=== PATIENT | male | born 1970 | race Caucasian/White ===

== ENCOUNTER 2017-02-19 12:35 | Observation (INO) ==
[2017-02-19] MEDS ORDERED: METOPROLOL TARTRATE 5 MG/5 ML VIAL IV STA ×2 (13:06→14:21)
[2017-02-19] MEDS ORDERED: MORPHINE 2 MG/1 ML SYRINGE IV PRN (13:06)
[2017-02-19] MEDS ORDERED: ENOXAPARIN 100 MG/ML SYRINGE SUBCUT STA (13:06)
[2017-02-19] MEDS ORDERED: ASPIRIN 325 MG TABLET PO STA (13:06)
[2017-02-19] MEDS ORDERED: ONDANSETRON 4 MG/2 ML VIAL IV PRN ×2 (13:06→15:48)
[2017-02-19 13:14] LABS: Basophils # 0.1 10*3/uL (0.0-0.2); Basophils % 0.9 % (0.0-0.8); Eosinophils # 0.4 10*3/uL (0.0-0.87); Eosinophils % 4.9 % (0.00-10.9); Hematocrit 43.8 VOL% (42.0-52.0); Hemoglobin 15.3 GM/DL (14.0-18.0); Immature Granulocytes % 0.2 %; Immature Granulocytes Absolute 0.02 #; Lymphocytes # 2.3 10*3/uL (1.4-4.0); Lymphocytes % 28.7 % (21.2-54.2); Mean Corpuscular HGB Conc 34.9 GM/DL (32-36); Mean Corpuscular Hemoglobin 30 PG (27-34); Mean Corpuscular Volume 85.9 FL (87-102); Mean Platelet Volume 10.6 FL (9.6-12.0); Monocytes # 0.7 10*3/uL (0.11-0.8); Monocytes % 8.6 % (1.7-12.7); Neutrophils # 4.6 10*3/uL (1.4-7.4); Neutrophils % 56.7 % (38.7-73.9); Platelet Count 282 T/CUMM (130-400); Red Cell Distribution Width 13.2 % (9.3-17.3); White Blood Count 8.1 T/CUMM (4-12)
[2017-02-19] MEDS ORDERED: ENOXAPARIN 120 MG/0.8 ML SYRINGE SUBCUT ONE (13:14)
[2017-02-19] MEDS ORDERED: ONDANSETRON 4 MG/2 ML VIAL ONE (13:15)
[2017-02-19] MEDS ORDERED: MORPHINE 2 MG/1 ML SYRINGE ONE (13:15)
[2017-02-19] MEDS ORDERED: ASPIRIN 325 MG TABLET ONE (13:15)
[2017-02-19] MEDS ORDERED: METOPROLOL TARTRATE 5 MG/5 ML VIAL IV ONE ×2 (13:15→14:18)
[2017-02-19 13:22] LABS: PT Patient Result 10.2 SECS
--- NOTE | 2017-02-19 13:27 | EKG Report ---
Stationary ECG Study [facility] ER Test Date: 02/19/2017 1:24:58 PM Pat Name: GAVINO CATHERINE Department: Room: Gender: M [employer]: : 1970 Requested by: Pipe Mijares Order Number: [id number] Marla MD: MARGIE GERMAN Intervals [place] Rate: 68 P: 28 MN: 162 QRS: 4 QRSD: 96 T: 45 QT: 410 QTc: 426 Interpretive Statements SINUS RHYTHM Electronically Signed On 02-20-17 17:05:35 CDT by MARGIE GERMAN [email or web address]
--- NOTE | 2017-02-19 13:27 | Emergency Department Note ---
Dwayne Potter Gwan, am scribing for, and in the presence of, Pipe Pastor MD 13:25 . Darby Potter James D, MD, personally performed the services described in this documentation, ascribed by Logan Rice in my presence, and it is both accurate and complete 327 . Arrival - Arrival Chief Complaint: Blood Pressure Stated Complaint: blood pressure too high ED Nursing Triage Note: c/o high bp. +headache. onset yesterday. pt is out of one his bp meds Mode of Arrival: Ambulatory Limitations: No Limitations Source: Patient, Old Records Reviewed, RN Notes Reviewed - History of Present Illness HPI Narrative: Patient is a 46 y/o white male, with a hx of HTN, who presents to the ED with a c/o high BP and KIRBY with an onset 3 days ago. Patient stated that he has been non compliant with his BP medication due to him running out of it. He describes his chest discomfort as tightness and that it is located in the center of his chest. His associated sxs have been diaphoresis, nausea and fatigue on exertion. Patient denies SOB or having a SHx of smoking cigarettes. He is followed by [facility] Tamiko Zamorano. He continued to note that he has a FMHx of heart disease. No other problems/complaints reported in ED. Onset (ago): day(s) Consistency: constant Severity: moderate Allergies/Adverse Reactions: Allergies Allergy/AdvReac Type Severity Reaction Status Date / Time Metaxalone [From Skelaxin] Allergy Unknown/Unable Verified 02/19/17 12:43 to obtain Home Medications: Home Medications Medication Instructions Recorded Confirmed Type Atenolol 50 mg PO DAILY 02/19/17 02/19/17 History Benazepril/Hydrochlorothiazide 1 each PO DAILY 02/19/17 02/19/17 History [Benazepril-Hctz 20-25 mg Tab] Review of System - Review of System 12 point system: reviewed and no additional remarkable complaints except as stated - Review of System Constitutional: Present: diaphoresis. Absent: chills, fever Eyes: Absent: discharge Head/Ears/Nose/Throat: Absent: earache Respiratory: Absent: cough Cardiovascular: Present: as per HPI, chest pain (tightness) Gastrointestinal: Present: as per HPI, nausea. Absent: abdominal pain, vomiting Genitourinary male: Absent: urgency, dysuria Musculoskeletal: Absent: arm pain, back pain, leg pain, neck pain Skin: Absent: rash, lesions Medical,Surgical,& Family Hx - Medical History Cardio: History of: Hypertension Musculoskeletal: History of: Musculoskeletal Problems (back surgery and plate in neck) - Social History Smoking Status: Smoker, status unknown Frequency of Alcohol Use: None Type of Drug Use: None Exam Physical Examination: GENERAL: This is a well-nourished, well-developed white male in no apparent distress. VITAL SIGNS: HEENT: Head is normocephalic and atraumatic. Pupils are equally round and reactive to light. Extraocular movement are intact. Oropharynx is benign with moist mucous membranes. NECK: Neck is soft and supple without tenderness. There are no masses. There is no lymphadenopathy. LUNGS: Lungs are clear to auscultation bilaterally. Chest rises symmetrically. There is no chest wall tenderness. CV: Heart is regular rate and rhythm without murmurs, rubs, or gallops. ABDOMEN: Abdomen is soft, non-tender to palpation. There are no abnormal masses palpated. There is no organomegaly. Bowel sounds are present and active. SKIN: Skin is warm and dry. No rash. EXTREMITIES: Patient has full range of motion without tenderness. There is no pedal edema. NEUROLOGIC: Awake, alert, and oriented x4. Cranial nerves II through XII are grossly intact. There are no motorsensory deficits. PSYCHIATRIC: Normal affect. Normal mood. Vital Signs: Vital Signs Temperature 99.3 F 02/19/17 12:49 Pulse Rate 61 02/19/17 14:30 Respiratory Rate 16 02/19/17 14:30 Blood Pressure 170/98 02/19/17 14:30 O2 Sat by Pulse Oximetry 98 02/19/17 14:30 Course - Consultations Consultation #1: Discussed with hospitalist. Patient will be admitted to their service. Time: 15:02 Results - Labs CBC & BMP: 02/19/17 13:04 02/19/17 13:04 Lab Results: I have reviewed the patients labs Labs: Laboratory Tests 02/19/17 13:04 WBC 8.1 RBC 5.10 Hgb 15.3 Hct 43.8 MCV 85.9 L Plt Count 282 Baso % (Auto) 0.9 H Laboratory Tests 02/19/17 02/19/17 13:04 13:04 INR 1.0 PT Patient/Control Mix 10.2 Circ Anticoag PTT 25.8 Laboratory Tests 02/19/17 14:14 Urine pH 5.0 Ur Specific [place] 1.002 Urine Blood Small Urine Urobilinogen < 2.0 H Laboratory Tests 02/19/17 13:04 Troponin I < 0.015 - EKG EKG results: interpreted by ERMD - Impressions EKG: Normal sinus rhythm with a rate of 68, normal ST-T waves, normal axis. - Diagnostic Findings Procedure: Chest x-ray: image reviewed by me, report reviewed by me (No acute cardiopulmonary process demonstrated. ) Disposition Clinical Impression: Chest pain, Essential hypertension, Hyperlipidemia, Family history of coronary artery disease in mother Case discussed with: patient Disposition: Still a Patient Condition: Stable Time of Disposition: 14:46
[2017-02-19 13:47] LABS: Albumin 4.6 G/DL (3.4-5.0); Bilirubin,Total 0.7 MG/DL (0.2-1.0); Calcium 9.6 MG/DL (8.5-10.1); Total Protein 8.1 G/DL (6.4-8.3)
--- NOTE | 2017-02-19 14:00 | XRay Report ---
XR chest 2V Indication: Chest pain Comparison: None Technique: Frontal and lateral views of the chest. Findings: The cardiomediastinal silhouette is stable in configuration. No focal consolidation, pleural effusion, or pneumothorax. Visualized osseous and surrounding soft tissue structures demonstrate no acute abnormality. Cervical fusion hardware partially visualized. IMPRESSION: No acute cardiopulmonary process demonstrated. PROCEDURE INTERPRETED AT [facility] DEPARTMENT OF RADIOLOGY Final Report Signed by: Dr Jan Hudson
[2017-02-19 14:21] LABS: Apearance,Urine CLEAR (Clear); Bilirubin,Urine Negative (Negative); Blood, Urine Small mg/dL (Negative); Glucose,Urine (UA) Negative (Negative); Ketones,Urine Negative (Negative); Nitrite,Urine Negative (Negative); Protein,Urine Negative; Urine Color Straw (Yellow); Urine Specific Gravity 1.002 (1.001-1.035); Urine Urobilinogen < 2.0 EU/DL (0.2-1.0)
[2017-02-19] MEDS ORDERED: hydrALAZINE 20 MG/1 ML VIAL IV STA (14:45)
[2017-02-19] MEDS ORDERED: hydrALAZINE 20 MG/1 ML VIAL ONE (14:47)
[2017-02-19 14:59] LABS: Barbiturates Screen,Urine Negative (Negative); Benzodiazepines Screen,Urine Negative (Negative); Cannabinoid Screen,Urine Negative (Negative); Opiate Screen,Urine Positive (Negative); Phencyclidine Screen,Urine Negative (Negative)
[2017-02-19] MEDS ORDERED: ACETAMINOPHEN 325 MG TABLET PO PRN (15:48)
--- NOTE | 2017-02-19 15:56 | Hospitalist History & Physical ---
Assessment and Plan (1) Obstructive sleep apnea Status: Acute Current Visit: Yes (2) Chest pain Status: Acute Current Visit: Yes (3) Essential hypertension Status: Acute Current Visit: Yes (4) Family history of coronary artery disease in mother Status: Acute Assessment and plan: Our plan for this patient will be admission to telemetry. Will consult [facility] cardiology for their evaluation. Also I will get a set patient up with a consult with sleep medicine. We will draw serial cardiac enzymes. EKG and chest x-ray looked good. There is no sign on his chest x-ray of a cardiomyopathy. Current Visit: Yes History of Present Illness Chief complaint: Chest discomfort and not feeling well History of present illness: Mr. Bello is a 46 year old male with past medical history significant for hypertension and possibly enlarged heart presents with not feeling well for the past couple days. Patient knew his blood pressure was elevated. He checked it at home is 207/127. He reports that he ran out of his atenolol. He has been having some chest tightness off and on. He said that has been going on for little while. He has a tired sensation that he started developing yesterday morning where his left arm felt weird. He has been having some diaphoretic symptoms and some shortness of breath. He thought possibly it could be his heart. His mom with a massive heart attack at age 50 and his brother at age 42. Upon further questioning patient is having some snoring at night. There are apnea episodes according to him. I was consulted to admit him to the ER. Home Medications Medication Instructions Recorded Confirmed Type Atenolol 50 mg PO DAILY 02/19/17 02/19/17 History Benazepril/Hydrochlorothiazide 1 each PO DAILY 02/19/17 02/19/17 History [Benazepril-Hctz 20-25 mg Tab] Allergies Allergy/AdvReac Type Severity Reaction Status Date / Time Metaxalone [From Skelaxin] Allergy Unknown/Unable Verified 02/19/17 12:43 to obtain Medical,Surgical,& Family Hx - Medical History Cardio: History of: Hypertension Musculoskeletal: History of: Musculoskeletal Problems (back surgery and plate in neck) - Surgical History Orthopedic Surgeries: Surgical HX of;: Orthopedic Surgery - Family History Family History: Reports;: Family Heart Disease - Social History Smoking Status: Smoker, status unknown Frequency of Alcohol Use: None Type of Drug Use: None 12 point system: reviewed and no additional remarkable complaints except as stated Exam - Constitutional Vitals: Period Temp Pulse Resp BP Sys/Hill Pulse Ox Last 24 Hr 99.3 F-99.3 F 60-80 16-23 170-190/83-114 95-98 General appearance: over weight - Head Head exam: Present: normal inspection - Eye Eye exam: Present: EOMI Pupils: Present: MUMTAZ - ENT ENT exam: Present: normal exam - Neck Neck exam: Present: normal inspection - Respiratory Respiratory exam: Present: clear to auscultation bilaterally - Cardiovascular Cardiovascular exam: Present: regular rate and rhythm - GI/Abdominal GI/Abdominal exam: Present: normal bowel sounds - Extremities Exam Extremities exam: Present: normal inspection - Back Exam Back exam: Present: normal inspection - Neurological Exam Neurological exam: Present: alert, oriented X3 - Psychiatric Psychiatric exam: Present: normal affect, normal mood - Skin Skin exam: Present: normal color Results - Labs CBC & BMP: 02/19/17 13:04 02/19/17 13:04
[2017-02-19] MEDS ORDERED: ENOXAPARIN 40 MG/0.4 ML SYRINGE SUBCUT SCH (16:00)
[2017-02-19 16:16] LABS: Risk Ratio 7.09; VLDL CHOLESTEROL 56.8 MG/DL
[2017-02-20] MEDS: ATENOLOL 50 MG TABLET PO SCH (08:44)
[2017-02-20] MEDS: ASPIRIN EC 325 MG TABLET PO SCH (08:45)
[2017-02-20] MEDS ORDERED: BENAZEPRIL 10 MG TABLET PO SCH (09:00)
[2017-02-20] MEDS ORDERED: hydroCHLOROthiazide 25 MG TABLET PO SCH (09:00)
--- NOTE | 2017-02-20 10:00 | Cardiology Consult Note ---
Assessment and Plan - Time spent with patient Time spent with patient: Greater than 30 minutes (due to assessment, plan, and documentation) Time spent discussing smoking cessation with patient: 3 to 10 minutes (1) Angina pectoris Status: Acute Assessment and plan: See plan of care listed below. Current Visit: Yes (2) Essential hypertension Status: Chronic Assessment and plan: See plan of care listed below. Current Visit: Yes (3) Family history of premature CAD Status: Chronic Assessment and plan: See plan of care listed below. Current Visit: Yes (4) Obstructive sleep apnea Status: Acute Assessment and plan: See plan of care listed below. Current Visit: Yes (5) Hyperlipidemia Status: Acute Assessment and plan: See plan of care listed below. Current Visit: Yes (6) History of colon polyps Status: Chronic Assessment and plan: See plan of care listed below. Current Visit: Yes (7) Tobacco abuse Status: Chronic Assessment and plan: See plan of care listed below. Current Visit: Yes History of Present Illness - Data of Consult Patient: new to practice Consult date: 02/19/17 Requesting Physician: Pancho Cook Primary care physician: Tamiko Zamorano - Consult Narrative Reason for consult: CP, SOB History of present illness: WHOLESALE MANAGER: NONE, NEW TO DR. MCGARRY PCP: WINNIE RIDDLE Mr. Bello is a 46 year old male with a history of hypertension and gout. He has a strong family history of coronary artery disease with a mom who from an PR at age 50 and a brother who from an PR at age 42. Other risk factors include: Smokeless tobacco use, overweight, hypertension. He tells me he underwent stress testing approximately 10 years ago and was hospitalized at [facility] a couple years ago with hypertension and was told at that time that he had an enlarged heart and was placed on atenolol. Mr. Bello presented to the emergency room yesterday afternoon with elevated blood pressure and chest tightness. He tells us that he ran out of 1 of his blood pressure medications this past Saturday his blood pressure at home was 207/ 127. Is resuming his medications and adding additional therapy, this is now much improved. Upon interviewing the patient, he tells me that he has had chest pain off and on for the past year or more. He tells me this is gradually been getting more frequent and more intense. He describes his pain as being a tightness and is usually only when he exerts himself. He has associated shortness of breath, diaphoresis, and nausea. He tells me his pain is worse with exertion and improves with rest. He also complains of dyspnea on exertion and tells me he could barely walk down the [place] without becoming short of breath. He tells me on Saturday he had the worst pain he has ever had and also had some associated left arm discomfort. 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 He also complains of occasional palpitations. Further review of systems includes a history of snoring. Sleep medicine has been consulted to see him for suspected sleep apnea. He also reports a history of cancerous polyps which were removed [address] Herbert at [place]. He has not followed up with this since then and now reports he has occasional blood in his stool and frequent coffee ground appearing stools. In addition to this, he states he has had a decreased appetite and has been vomiting frequently here recently. He and his report they thought this vomiting may have been due to his medications but they have adjusted his medication schedule and the vomiting has not changed. ASSESSMENT/PLAN: 1. ANGINA - Patient reports symptoms fairly typical of angina. Currently has 3 sets of negative troponins and unremarkable EKG. Ideally, he would need a cath to further define his coronary anatomy, but with the possible need for DAPT and anticoagulation, we will ask GI to see him and obtain their input prior to proceeding. If he needs further evaluation and treatment of his GI issues, we may be able to pursue LHC on an outpatient basis. He is currently chest pain free; however, if he has recurrent anginal symptoms, we may have no choice but to proceed with left heart catheterization. His H&H is currently stable. 2. HYPERTENSION - Currently well controlled on current therapy. Will continue to monitor and adjust accordingly. 3. FAMILY HISTORY OF PREMATURE CAD - He has a strong family history of coronary artery disease with a mom who from an PR at age 50 and a brother who from an PR at age 42. 4. SUSPECTED SLEEP DISORDER - Sleep medicine has been consulted. 5. HYPERLIPIDEMIA - Will start lipid-lowering agent. 6. HISTORY OF CANCEROUS COLON POLYPS - Will consult GI due to history of cancerous colon polyps and recent melena/hematochezia. Will obtain occult stool and start on PPI. 7. TOBACCO ABUSE - Spent greater than 5 minutes discussing the importance of cessation of tobacco use. Dr. Mcgarry to follow with further plan and addendum. CC: Wendy Carballo MD - Home Medications and Allergies Home Medications: Home Medications Medication Instructions Recorded Confirmed Type Atenolol 50 mg PO DAILY 02/19/17 02/19/17 History Benazepril/Hydrochlorothiazide 1 each PO DAILY 02/19/17 02/19/17 History [Benazepril-Hctz 20-25 mg Tab] Allergies/Adverse Reactions: Allergies Allergy/AdvReac Type Severity Reaction Status Date / Time Metaxalone [From Skelaxin] Allergy Unknown/Unable Verified 02/19/17 12:43 to obtain Review of systems: - Constitutional: Present: fatigue, As per HPI. Absent: anorexia, chills, daytime sleepiness, excessive sweating, fever(s), frequent falls, headache(s), increased appetite, lethargy, malaise, night sweats, stops breathing during sleep, weakness, weight gain, weight loss. - EENT Eyes: Present: As per HPI. Absent: blurry vision, diplopia, loss of vision Ears: Present: As per HPI. Absent: decreased hearing, ear discharge, ear pain Nose, mouth and throat: Present: As per HPI. Absent: dysphagia, epistaxis, headache(s), hoarseness, lip swelling, nasal congestion, neck mass, neck pain, sinus pressure, sore throat, throat swelling, tongue swelling, vertigo - Cardiovascular: Present: chest pain with activity, dyspnea on exertion, edema , palpitations, as per HPI. Absent: chest pain at rest, dyspnea, claudication, diaphoresis, radiating jaw, neck or arm pain, lightheadedness, orthopnea, PND - Respiratory: Present: as per HPI. Absent: dyspnea, dyspnea on exertion, cough , hemoptysis, wheezing, snoring, pain on inspiration - Gastrointestinal: Present: hematochezia, melena, nausea, vomiting,As per HPI. Absent: abdominal pain, bloating, change in bowel habits, constipation, diarrhea , heartburn, hematemesis, loose stools - Genitourinary: Present: As per HPI. Absent: difficulty urinating, dysuria, flank pain, hematuria, nocturia, urinary frequency, urinary incontinence - Musculoskeletal: Present: As per HPI. Absent: arthralgias, back pain, joint swelling, limited range of motion, muscle cramps, muscle weakness, myalgias - Neurological: Present: As per HPI. Absent: abnormal gait, abnormal speech, behavioral changes, confusion, convulsions, disequilibrium, dizziness, focal weakness, frequent falls, headache(s), memory loss, numbness, paresthesias, radicular pain, syncope, tremor(s) - Psychiatric: Present: As per HPI. Absent: anxiety, confusion, depression, panic attacks - Endocrine: Present: fatigue, As per HPI. Absent: cold intolerance, heat intolerance, polydipsia, polyphagia - Hematologic/Lymphatic: Present: As per HPI. Absent: easy bleeding, easy bruising, lymphadenopathy Medical,Surgical,& Family Hx - Medical History Cardio: History of: Hypertension Rheumatology: History of;: Gout Musculoskeletal: History of: Musculoskeletal Problems (back surgery and plate in neck) - Surgical History Abdominal Surgeries: Surgical HX of: Cholecystectomy, Colonoscopy (polyps removed), EGD Orthopedic Surgeries: Surgical HX of;: Orthopedic Surgery - Family History Family History: Reports;: Family Diabetes, Family Heart Disease, Family Hypertension, Family Stroke Denies;: Family Cancer - Social History Smoking Status: Current every day smoker (uses smokeless tobacco) Time spent discussing smoking cessation with patient: 3 to 10 minutes Frequency of Alcohol Use: None Type of Drug Use: None Marital Status: Lives With:: Spouse Functional capacity: independent ambulation Physical Examination Vital Signs Temp Pulse Resp BP Pulse Ox 99.3 F 80 18 188/114 97 02/19/17 12:40 02/19/17 12:40 02/19/17 12:40 02/19/17 12:40 02/19/17 12:40 Other: General appearance: Pleasant and cooperative. Overweight, no acute distress. - Head Head exam: Present: normal inspection, normocephalic, atraumatic. Absent: hematoma, laceration - Eye Eye exam: Present: EOMI. Absent: conjunctival injection, nystagmus, periorbital swelling, scleral icterus, laceration to eyelids Pupils: Present: PERRL. Absent: constricted, dilated, fixed, irregular, unequal - ENT ENT exam: Present: normal exam, normal external ear exam - Neck Neck exam: Present: normal inspection. Absent: lymphadenopathy, meningismus, tenderness, thyromegaly - Respiratory Respiratory exam: Present: clear to auscultation bilaterally. Absent: accessory muscle use, chest wall tenderness - Cardiovascular Cardiovascular exam: Present: regular rate and rhythm. Absent: carotid bruit, gallop, JVD, rubs, murmur - GI/Abdominal GI/Abdominal exam: Present: normal bowel sounds, soft. Absent: distended, firm , guarding, hernia, mass, tenderness, rebound. - Extremities Exam Extremities exam: Present: normal inspection, normal capillary refill. Upper extremity pulses 2+. Lower extremity pulses 2+. Absent: calf tenderness, edema -Musculoskeletal Exam Musculoskeletal: Present: No Fluid Collection, No Pain, Normal Range of Motion - Back Exam Back exam: Present: normal inspection. Absent: muscle spasm, vertebral tenderness - Neurological Exam Neurological exam: Present: alert, oriented X3, grossly intact without resting or essential tremor - Psychiatric Psychiatric exam: Present: normal affect, normal mood - Skin Skin exam: Present: normal color, warm, dry, intact. Absent: cyanosis, diaphoretic, rash, urticaria Result/EKG - Labs CBC & BMP: 02/19/17 13:04 02/19/17 13:04 Lab Results: I have reviewed the past 24 hour labs Labs: Laboratory Results - last 24 hr 02/19/17 02/19/17 02/19/17 13:04 13:04 13:04 WBC 8.1 RBC 5.10 Hgb 15.3 Hct 43.8 MCV 85.9 L MCH 30 MCHC 34.9 RDW 13.2 Plt Count 282 MPV 10.6 Neut % (Auto) 56.7 Lymph % (Auto) 28.7 [place] % (Auto) 8.6 Eos % (Auto) 4.9 Baso % (Auto) 0.9 H Neut # (Auto) 4.6 Lymph # (Auto) 2.3 [place] # (Auto) 0.7 Eos # (Auto) 0.4 Baso # (Auto) 0.1 Immature Gran % 0.2 Nucleated RBC % 0.0 Immature Gran # 0.02 Nucleated RBCs # 0.00 INR 1.0 PT Patient/Control Mix 10.2 Circ Anticoag PTT Sodium 136 Potassium 4.0 Chloride 98 Carbon Dioxide 28 Anion Gap 14.0 BUN 11 Creatinine 0.90 GFR Calculation 139 BUN/Creatinine Ratio 12.00 Glucose 89 Calculated Osmolality 269.0 L Calcium 9.6 Total Bilirubin 0.70 AST 20 ALT 27 Alkaline Phosphatase 68 Troponin I Total Protein 8.1 Albumin 4.6 Globulin 3.5 Albumin/Globulin Ratio 1.3 Triglycerides Cholesterol LDL Cholesterol VLDL Cholesterol HDL Cholesterol Heart Disease Risk Ratio Urine Color Urine Appearance Urine pH Ur Specific [place] Urine Protein Urine Glucose (UA) Urine Ketones Urine Blood Urine Nitrate Urine Bilirubin Urine Urobilinogen Urine Leukocytes Ur Culture Indicated? Urine Opiates Screen Ur Barbiturates Screen Ur Phencyclidine Scrn U Amphetamine/Methamph U Benzodiazepines Scrn U Cocaine Metab Screen U Cannabinoids Screen 02/19/17 02/19/17 02/19/17 13:04 13:04 13:04 WBC RBC Hgb Hct MCV MCH MCHC RDW Plt Count MPV Neut % (Auto) Lymph % (Auto) [place] % (Auto) Eos % (Auto) Baso % (Auto) Neut # (Auto) Lymph # (Auto) [place] # (Auto) Eos # (Auto) Baso # (Auto) Immature Gran % Nucleated RBC % Immature Gran # Nucleated RBCs # INR PT Patient/Control Mix Circ Anticoag PTT 25.8 Sodium Potassium Chloride Carbon Dioxide Anion Gap BUN Creatinine GFR Calculation BUN/Creatinine Ratio Glucose Calculated Osmolality Calcium Total Bilirubin AST ALT Alkaline Phosphatase Troponin I < 0.015 Total Protein Albumin Globulin Albumin/Globulin Ratio Triglycerides 284 H Cholesterol 234 H LDL Cholesterol 159.0 VLDL Cholesterol 56.8 HDL Cholesterol 33 L Heart Disease Risk Ratio 7.09 Urine Color Urine Appearance Urine pH Ur Specific [place] Urine Protein Urine Glucose (UA) Urine Ketones Urine Blood Urine Nitrate Urine Bilirubin Urine Urobilinogen Urine Leukocytes Ur Culture Indicated? Urine Opiates Screen Ur Barbiturates Screen Ur Phencyclidine Scrn U Amphetamine/Methamph U Benzodiazepines Scrn U Cocaine Metab Screen U Cannabinoids Screen 02/19/17 02/19/17 02/19/17 14:14 14:14 18:28 WBC RBC Hgb Hct MCV MCH MCHC RDW Plt Count MPV Neut % (Auto) Lymph % (Auto) [place] % (Auto) Eos % (Auto) Baso % (Auto) Neut # (Auto) Lymph # (Auto) [place] # (Auto) Eos # (Auto) Baso # (Auto) Immature Gran % Nucleated RBC % Immature Gran # Nucleated RBCs # INR PT Patient/Control Mix Circ Anticoag PTT Sodium Potassium Chloride Carbon Dioxide Anion Gap BUN Creatinine GFR Calculation BUN/Creatinine Ratio Glucose Calculated Osmolality Calcium Total Bilirubin AST ALT Alkaline Phosphatase Troponin I < 0.015 Total Protein Albumin Globulin Albumin/Globulin Ratio Triglycerides Cholesterol LDL Cholesterol VLDL Cholesterol HDL Cholesterol Heart Disease Risk Ratio Urine Color Straw Urine Appearance Clear Urine pH 5.0 Ur Specific [place] 1.002 Urine Protein Negative Urine Glucose (UA) Negative Urine Ketones Negative Urine Blood Small Urine Nitrate Negative Urine Bilirubin Negative Urine Urobilinogen < 2.0 H Urine Leukocytes Negative Ur Culture Indicated? Not indicated Urine Opiates Screen Positive H Ur Barbiturates Screen Negative Ur Phencyclidine Scrn Negative U Amphetamine/Methamph Negative U Benzodiazepines Scrn Negative U Cocaine Metab Screen Negative U Cannabinoids Screen Negative 02/19/17 21:39 WBC RBC Hgb Hct MCV MCH MCHC RDW Plt Count MPV Neut % (Auto) Lymph % (Auto) [place] % (Auto) Eos % (Auto) Baso % (Auto) Neut # (Auto) Lymph # (Auto) [place] # (Auto) Eos # (Auto) Baso # (Auto) Immature Gran % Nucleated RBC % Immature Gran # Nucleated RBCs # INR PT Patient/Control Mix Circ Anticoag PTT Sodium Potassium Chloride Carbon Dioxide Anion Gap BUN Creatinine GFR Calculation BUN/Creatinine Ratio Glucose Calculated Osmolality Calcium Total Bilirubin AST ALT Alkaline Phosphatase Troponin I < 0.015 Total Protein Albumin Globulin Albumin/Globulin Ratio Triglycerides Cholesterol LDL Cholesterol VLDL Cholesterol HDL Cholesterol Heart Disease Risk Ratio Urine Color Urine Appearance Urine pH Ur Specific [place] Urine Protein Urine Glucose (UA) Urine Ketones Urine Blood Urine Nitrate Urine Bilirubin Urine Urobilinogen Urine Leukocytes Ur Culture Indicated? Urine Opiates Screen Ur Barbiturates Screen Ur Phencyclidine Scrn U Amphetamine/Methamph U Benzodiazepines Scrn U Cocaine Metab Screen U Cannabinoids Screen - EKG EKG results: interpreted by me, sinus rhythm
[2017-02-20] MEDS ORDERED: hydrALAZINE 25 MG TABLET PO PRN (11:03)
[2017-02-20] MEDS ORDERED: NITROGLYCERIN SL 0.4 MG TABLET SL ONE (14:05)
--- NOTE | 2017-02-20 14:59 | Gastrointestinal Consult Note ---
<Suyapa Garcia - Last Filed: 02/20/17 14:55> Assessment and Plan (1) Nausea and vomiting Status: Acute Assessment and plan: 02/20-several year history of nausea and vomiting every morning, not associated with meal ingestion or other known factors. Prior workup at [place] for this with no findings. Occasional reports of melena. Obtain stool for occult blood. Obtain endoscopy records from [facility]. Cardiac workup is ongoing at this time. Plan an addendum to follow by Dr. Mistry. Current Visit: Yes History of Present Illness Chief complaint: Chronic nausea vomiting History of present illness: Mr. Bello is a 46 year old male who was admitted to the hospital and yesterday with complaints of elevated blood pressure and headache 3 days. Patient has a history of hypertension, and states he has not felt well the last several days. He was aware that his blood pressure was elevated and he ran out of his medication and at that time began having some chest discomfort. He has a strong family history of cardiac disease in his family with his father and brother passing away from this at an early age. Since admission, patient is brought forth that he also has a long-term history of chronic nausea and vomiting every morning. Patient states that for several years he has an episode somewhere between the time he gets out of bed and late morning where he will have nausea vomiting. He states that it does not matter if he is eaten or not, he will usually do this at least once a day. He states usually it is just bile stained emesis or food that he has recently eaten. He denies any abdominal pain associated with this. He denies any him much emesis or coffee- ground emesis. He does state that at times off and on as well he has had dark stools and denies any iron or Pepto-Bismol use. He denies a history of peptic ulcer disease. Denies a history of dysphagia other than at times with drinking water. He denies having chronic reflux symptoms. He denies any recent weight loss. He states that he has had upper endoscopy in the past however is been several years ago at [facility] for the same symptoms with no findings noted. He does recall having hiatal hernia. He denies any regular NSAID use. Patient states that he had a cholecystectomy approximately 3-4 years ago and reports a history of gallstones. He has not had a recent colonoscopy in the past several years however he does report a history of colon polyps which he states were told to be precancerous in the past. He denies a history of diabetes and states he has never had a gastric emptying scan in the past. His cardiac workup is ongoing at this time. Home Medications Medication Instructions Recorded Confirmed Type Atenolol 50 mg PO DAILY 02/19/17 02/19/17 History Benazepril/Hydrochlorothiazide 1 each PO DAILY 02/19/17 02/19/17 History [Benazepril-Hctz 20-25 mg Tab] Allergies Allergy/AdvReac Type Severity Reaction Status Date / Time Metaxalone [From Skelaxin] Allergy Unknown/Unable Verified 02/19/17 12:43 to obtain Medical,Surgical,& Family Hx - Medical History Cardio: History of: Hypertension Rheumatology: History of;: Gout Musculoskeletal: History of: Musculoskeletal Problems (back surgery and plate in neck) - Surgical History Abdominal Surgeries: Surgical HX of: Cholecystectomy, Colonoscopy (polyps removed), EGD Orthopedic Surgeries: Surgical HX of;: Orthopedic Surgery - Family History Family History: Reports;: Family Diabetes, Family Heart Disease, Family Hypertension, Family Stroke Denies;: Family Cancer - Social History Smoking Status: Current every day smoker (uses smokeless tobacco) Frequency of Alcohol Use: None Type of Drug Use: None 12 point system: reviewed and no additional remarkable complaints except as stated - Constitutional Constitutional: Present: as per HPI - EENT Eyes: Present: as per HPI Ears: Present: as per HPI Nose, mouth and throat: Present: as per HPI - Cardiovascular Cardiovascular: Present: as per HPI, chest pain at rest - Respiratory Respiratory: Present: as per HPI - Gastrointestinal Gastrointestinal: Present: as per HPI, melena, nausea, vomiting - Genitourinary Genitourinary: Present: as per HPI - Musculoskeletal Musculoskeletal: Present: as per HPI - Neurological Neurological: Present: as per HPI - Psychiatric Psychiatric: Present: as per HPI - Endocrine Endocrine: Present: as per HPI - Hematologic/Lymphatic Hematologic/Lymphatic: Present: as per HPI Exam - Constitutional Vitals: Period Temp Pulse Resp BP Sys/Hill Pulse Ox Last 24 Hr 97.3 F-98.2 F 55-72 15-20 106-201/59-120 95-98 General appearance: normal weight, no acute distress - Head Head exam: Present: normal inspection, normocephalic - Eye Eye exam: Present: other (Lids and conjunctive are unremarkable). Absent: scleral icterus - ENT ENT exam: Present: normal exam, normal oropharynx - Neck Neck exam: Present: normal inspection - Respiratory Respiratory exam: Present: clear to auscultation bilaterally. Absent: rales, rhonchi, wheezes - Cardiovascular Cardiovascular exam: Present: regular rate and rhythm. Absent: diastolic murmur , JVD, systolic murmur - GI/Abdominal GI/Abdominal exam: Present: normal bowel sounds, soft. Absent: ascites, distended, mass, organomegaly, tenderness - Extremities Exam Extremities exam: Present: normal inspection, full ROM - Back Exam Back exam: Present: normal inspection - Neurological Exam Neurological exam: Present: alert, oriented X3 - Psychiatric Psychiatric exam: Present: normal affect, normal mood - Skin Skin exam: Present: normal color, warm, dry Results - Labs CBC & BMP: 02/19/17 13:04 02/19/17 13:04 Lab Results: I have reviewed the past 24 hour labs <Mando Mistry - Last Filed: 02/20/17 18:48> History of Present Illness History of present illness: Mr. Bello is a 46 year old male Exam - Constitutional Vitals: Period Temp Pulse Resp BP Sys/Hill Pulse Ox Last 24 Hr 97.3 F-98.2 F 55-72 18-20 106-201/59-120 95-98 Results - Labs CBC & BMP: 02/19/17 13:04 02/19/17 13:04
[2017-02-20] MEDS ORDERED: NAPROXEN 250 MG TABLET PO SCH ×2 (15:06→15:29)
[2017-02-20] MEDS ORDERED: ALUM/MAG/SIMETH/LIDO VISC 1:1 30 ML BOTTLE PO ONE (15:30)
--- NOTE | 2017-02-20 15:36 | Hospitalist Progress Note ---
Assessment and Plan (1) Chest pain Status: Acute Current Visit: Yes (2) Essential hypertension Status: Chronic Current Visit: Yes (3) Hyperlipidemia Status: Acute Current Visit: Yes (4) Obstructive sleep apnea Status: Acute Current Visit: Yes (5) Family history of premature CAD Status: Chronic Assessment and plan: Work-up thus far with serial cardiac enzymes has been unremarkable. Cardiology is following and appreciated their input. Blood pressures initially well- controlled but have gradually trended up throughout the day. Given such large swings in BP, will cautiously increase meds. Will start with increasing Lotensin to 20mg BID at attempts to provide BP coverage later in the day. Continue on tele for now. Looking into GI symptoms prior to proceeding with more invasive cardiac testing in the event that cardiac treatments require DAPT. GI has been consulted. Will obtain records of previous GI diagnostics from [place] to assist with GI work-up. Current Visit: Yes Hospitalist: Subjective Interval history: 46 year old male with hypertension who was admitted with hypertensive urgency and generalized fatigue. Also reports occassional episodes of chest tightness. He reports being out of his atenolol. He has been having diaphoresis and shortness of breath. He has a significant family history of heart disease with his mom passing away with a massive heart attack at the age of 50 and his brother at the age of 42. Additionally, he has had some issues with chronic GI symptoms of nausea and vomiting and dark stools. GI has been consulted per Cardiology recommendations for further work-up. Exam - Constitutional Vitals: Period Temp Pulse Resp BP Sys/Hill Pulse Ox Last 24 Hr 97.3 F-98.2 F 55-72 15-20 106-201/59-120 95-98 General appearance: normal weight, no acute distress - Head Head exam: Present: normal inspection, normocephalic, atraumatic - Eye Eye exam: Present: EOMI. Absent: conjunctival injection - Extremities Exam Extremities exam: Present: other (Ambulates without difficulty) - Neurological Exam Neurological exam: Present: alert, oriented X3, normal gait - Psychiatric Psychiatric exam: Present: normal affect, normal mood - Skin Skin exam: Present: normal color Results - Labs CBC & BMP: 02/19/17 13:04 02/19/17 13:04
[2017-02-20] MEDS: ENOXAPARIN 100 MG/ML SYRINGE SUBCUT SCH (15:54)
[2017-02-20] MEDS: PANTOPRAZOLE 40 MG TABLET PO SCH (15:56)
[2017-02-20] MEDS: HYDROmorphone 2 MG/1 ML VIAL IV PRN (15:57)
[2017-02-20] MEDS: clonazePAM 0.5 MG TABLET PO SCH ×2 (16:23→21:15)
[2017-02-20 17:11] LABS: Troponin I Only < 0.015 NG/ML (0.00-0.045)
[2017-02-20] MEDS: BENAZEPRIL 10 MG TABLET PO SCH (21:13)
[2017-02-20] MEDS: ACETAMINOPHEN 325 MG TABLET PO SCH (21:14)
[2017-02-20] MEDS: ROSUVASTATIN 20 MG TABLET PO SCH (21:15)
[2017-02-20] MEDS: traMADol 50 MG TABLET PO SCH (21:15)
[2017-02-20] MEDS: GABAPENTIN 100 MG CAPSULE PO SCH (21:15)
[2017-02-20] MEDS: NAPROXEN 250 MG TABLET PO SCH (21:16)
[2017-02-20] MEDS: SERTRALINE 25 MG TABLET PO SCH (21:16)
[2017-02-20] MEDS: NICOTINE 21 MG/24 HR PATCH TRANSDERM SCH (22:50)
[2017-02-20 23:18] LABS: Troponin I Only < 0.015 NG/ML (0.00-0.045)
[2017-02-21] MEDS: ENOXAPARIN 100 MG/ML SYRINGE SUBCUT SCH ×2 (04:42→16:16)
[2017-02-21 06:07] LABS: Troponin I Only < 0.015 NG/ML (0.00-0.045)
--- NOTE | 2017-02-21 06:23 | EKG Report ---
Stationary ECG Study [facility] Test Date: 02/20/2017 2:10:39 PM Pat Name: GAVINO CATHERINE Department: Room: 275 Gender: M Equipment Operat0R: : 1970 Requested by: Zaynab Beach Order Number: [id number] Reading MD: KATHY BRUNO Intervals [place] Rate: 63 P: 28 RI: 163 QRS: 15 QRSD: 104 T: 59 QT: 412 QTc: 419 Interpretive Statements SINUS RHYTHM At 63 bpm WNL Electronically Signed On 02-21-17 08:15:25 CDT by KATHY BRUNO [email or web address]
[2017-02-21] MEDS ORDERED: PROPOFOL 200 MG/20 ML VIAL IV ONE (12:16)
[2017-02-21] MEDS ORDERED: LIDOCAINE 1% 5 ML VIAL ONE (12:16)
--- NOTE | 2017-02-21 12:19 | History and Physical Update ---
History and Physical Update - Physical Exam Mental Status: alert and oriented Heart: regular rate and rhythm Lung: clear to auscultation Abdomen: within normal limits Vitals: within normal limits
--- NOTE | 2017-02-21 12:29 | Operative Note ---
Date of procedure: 02/21/17 Pre-op diagnosis: Persistent nausea and vomiting with atypical chest pain Procedure: EGD with biopsy 46-year-old white male with history of persistent nausea and vomiting admitted with atypical chest pain question of melena now for EGD to further evaluate. Informed symptoms obtained the patient He was sedated with MAC anesthesia per anesthesia protocol. Patient placed left lateral decubitus position the Olympus flexible video upper endoscope is her lower cavity under direct vision the esophagus intubated. Findings: Esophagus-normal esophageal mucosa throughout the esophagus. No significant hiatal hernia, esophagitis, Rg's, varices or stricture was identified. Stomach-normal insufflation normal mucosa in the body fundus and cardia the stomach to direct retroflexed views. In the antrum of the stomach there is diffuse erosive gastritis biopsies were taken. No ulcerations were identified. Pylorus-normal Duodenum-bulbar duodenitis without ulceration remaining duodenum is normal to the third portion. The scope was withdrawn and the procedure was terminated. Patient tolerated our procedure well his discharge recovery in good condition. Postop diagnosis: 1. Acute antral erosive gastritis-continue PPI treatment. Avoid nonsteroidals. Likely source for his persistent nausea and vomiting but unlikely to explain his atypical chest pain given his high risk family history would still recommend additional cardiac evaluation. The dark stool certainly may be related to this gastritis as well. 2. Duodenitis as above. Anesthesia: [facility] [place] Surgeon / Physician: Mando Mistry Estimated blood loss: none Specimens: other (Erosive gastritis) Condition: stable Disposition: post procedure unit Results - Labs CBC & BMP: 02/19/17 13:04 02/19/17 13:04 Discharge Plan - Discharge Medications No Action Benazepril/Hydrochlorothiazide [Benazepril-Hctz 20-25 mg Tab] 1 each PO DAILY Atenolol 50 mg PO DAILY - Follow Up or Referral - Forms/Instructions
--- NOTE | 2017-02-21 12:34 | Anesthesia Post-Op ---
Anesthesia Post OP - Post Ansesthetic Evaluation Patient seen in post op: Yes Resp: within normal limits CV: within normal limits Mental: within normal limits Temp: within normal limits [id number]: within normal limits Nausea and Vomiting: within normal limits Pain: within normal limits
[2017-02-21] MEDS: clonazePAM 0.5 MG TABLET PO SCH ×2 (15:03→20:39)
[2017-02-21] MEDS: BENAZEPRIL 10 MG TABLET PO SCH ×2 (15:05→20:38)
[2017-02-21] MEDS: ATENOLOL 50 MG TABLET PO SCH (15:05)
[2017-02-21] MEDS: GABAPENTIN 100 MG CAPSULE PO SCH ×3 (15:06→20:38)
[2017-02-21] MEDS: ASPIRIN EC 325 MG TABLET PO SCH (15:06)
[2017-02-21] MEDS: ACETAMINOPHEN 325 MG TABLET PO SCH ×2 (15:07→20:38)
[2017-02-21] MEDS: traMADol 50 MG TABLET PO SCH ×2 (15:09→20:38)
[2017-02-21] MEDS: PANTOPRAZOLE 40 MG TABLET PO SCH ×3 (15:09→20:38)
--- NOTE | 2017-02-21 15:11 | Hospitalist Progress Note ---
Assessment and Plan - Time spent with patient Time spent with patient: Greater than 30 minutes (1) Acute erosive gastritis Status: Acute Assessment and plan: PPI BID per GI. Hold ASA and NSAIDs for now. GI f/u. Current Visit: Yes (2) Duodenitis Status: Acute Assessment and plan: See listed as above. Current Visit: Yes (3) Chest pain Status: Acute Assessment and plan: Cards work up ok. Most likely due to gastritis and duodenitis. Current Visit: Yes (4) Essential hypertension Status: Chronic Assessment and plan: Continue current medications. Current Visit: Yes (5) Hyperlipidemia Status: Acute Assessment and plan: Continue current meds. Current Visit: Yes (6) Obstructive sleep apnea Status: Acute Current Visit: Yes Hospitalist: Subjective Interval history: 02/21/17: Tolerated EGD well today. Still has epigastric area pain. EGD today showed acute antral erosive gastritis and duodenitis. PPI BID started. No fever , headache or chest pain. Per Dr. Carballo's note on 02/20/17: 46 year old male with hypertension who was admitted with hypertensive urgency and generalized fatigue. Also reports occassional episodes of chest tightness. He reports being out of his atenolol. He has been having diaphoresis and shortness of breath. He has a significant family history of heart disease with his mom passing away with a massive heart attack at the age of 50 and his brother at the age of 42. Additionally, he has had some issues with chronic GI symptoms of nausea and vomiting and dark stools. GI has been consulted per Cardiology recommendations for further work-up. Exam - Constitutional Vitals: Period Temp Pulse Resp BP Sys/Hill Pulse Ox Last 24 Hr 97.4 F-98.5 F 55-73 16-20 130-168/69-111 94-99 Exam: GENERAL: NAD, AAOx3. HEENT: Pupils equally round and reactive to light, conjunctivae clear. TMs peña and translucent. Oropharynx pink, with moist mucous membranes. Normal lips, teeth and gums. NECK: Supple without mass. HEART: RRR, no murmur. CHEST: Normal shape, good air movement, no retractions. CV: RRR, no murmurs, 2+ peripheral pulses LUNGS: Clear to auscultation; no rales, rhonchi, or wheezes. ABDOMEN: Soft, +BS, tenderness at upper abd area. SKIN: No rash or edema. LYMPH: No anterior or posterior cervical, or supraclavicular lymphadenopathy. NEURO: No gross motor deficits noted. Results - Labs CBC & BMP: 02/19/17 13:04 02/19/17 13:04 - Impressions EGD report reviewed by me today. Showed acute erosive gastritis along with duodenitis.
[2017-02-21] MEDS: NICOTINE 21 MG/24 HR PATCH TRANSDERM SCH (15:14)
--- NOTE | 2017-02-21 15:27 | Cardiology Progress Note ---
Assessment and Plan - Time spent with patient Time spent with patient: Less than 30 minutes (1) Angina pectoris Status: Acute Assessment and plan: See plan of care listed below. Current Visit: Yes (2) Essential hypertension Status: Chronic Assessment and plan: See plan of care listed below. Current Visit: Yes (3) Family history of premature CAD Status: Chronic Assessment and plan: See plan of care listed below. Current Visit: Yes (4) Obstructive sleep apnea Status: Acute Assessment and plan: See plan of care listed below. Current Visit: Yes (5) Hyperlipidemia Status: Acute Assessment and plan: See plan of care listed below. Current Visit: Yes (6) History of colon polyps Status: Chronic Assessment and plan: See plan of care listed below. Current Visit: Yes (7) Tobacco abuse Status: Chronic Assessment and plan: See plan of care listed below. Current Visit: Yes (8) Nausea and vomiting Status: Acute Assessment and plan: See plan of care listed below. Current Visit: Yes Cardiology - PN: Subj Interval history: [employer]: NONE, NEW TO DR. MCGARRY PCP: WINNIE RIDDLE Mr. Bello is a 46 year old male with a history of hypertension and gout who presented with elevated blood pressure and chest tightness. He also had symptoms suggestive of typical angina with a strong family history of premature CAD. This presentation is complicated by his history of cancerous polyps and recent black tarry stools. He was started on PPI, ASA, and treatment for musculoskeletal chest discomfort. GI was consulted to see him and further cardiac evaluation was postponed until GI bleed had resolved. This morning, he underwent EGD with biopsy with Dr. Mistry and was found to have acute antral erosive gastritis. This was felt to be the likely source for his nausea, vomiting, and dark stools. It was recommended he avoid nonsteroidals. There were no labs for today. We will recheck a CBC, BMP in the morning. On admission, his H&H was stable. He will still need further cardiac evaluation, but it would be preferable to hold off on this until his GI issues have improved. Will further discuss treatment options and plan with Dr. Mcgarry and await his recommendations. ASSESSMENT/PLAN: 1. ANGINA - Patient reports symptoms fairly typical of angina. Currently has 3 sets of negative troponins and unremarkable EKG. Ideally, he would need a cath to further define his coronary anatomy, but with the possible need for DAPT and anticoagulation, this may need to be postponed until his GI issues have cleared. His H&H is currently stable. 2. HYPERTENSION - Currently well controlled on current therapy. Will continue to monitor and adjust accordingly. 3. FAMILY HISTORY OF PREMATURE CAD - He has a strong family history of coronary artery disease with a mom who from an IN at age 50 and a brother who from an IN at age 42. 4. SUSPECTED SLEEP DISORDER - Sleep medicine has been consulted. 5. HYPERLIPIDEMIA - Will start lipid-lowering agent. 6. HISTORY OF CANCEROUS COLON POLYPS - Will consult GI due to history of cancerous colon polyps and recent melena/hematochezia. Will obtain occult stool and start on PPI. 7. TOBACCO ABUSE - Spent greater than 5 minutes discussing the importance of cessation of tobacco use. 8. NAUSEA AND VOMITING - This morning, he underwent EGD with biopsy with Dr. Mistry and was found to have acute antral erosive gastritis. This was felt to be the likely source for his nausea, vomiting, and dark stools. It was recommended he avoid nonsteroidals. His aspirin has been held due to recent findings. Exam (Progress Note) - Constitutional Vitals: Period Temp Pulse Resp BP Sys/Hill Pulse Ox Last 24 Hr 97.4 F-98.5 F 55-77 16-20 130-171/69-111 94-99 Exam: General appearance: Pleasant and cooperative. Overweight, no acute distress. - Head Head exam: Present: normal inspection, normocephalic, atraumatic. Absent: hematoma, laceration - Eye Eye exam: Present: EOMI. Absent: conjunctival injection, nystagmus, periorbital swelling, scleral icterus, laceration to eyelids Pupils: Present: PERRL. Absent: constricted, dilated, fixed, irregular, unequal - ENT ENT exam: Present: normal exam, normal external ear exam - Neck Neck exam: Present: normal inspection. Absent: lymphadenopathy, meningismus, tenderness, thyromegaly - Respiratory Respiratory exam: Present: clear to auscultation bilaterally. Absent: accessory muscle use, chest wall tenderness - Cardiovascular Cardiovascular exam: Present: regular rate and rhythm. Absent: carotid bruit, gallop, JVD, rubs, murmur - GI/Abdominal GI/Abdominal exam: Present: normal bowel sounds, soft. Absent: distended, firm , guarding, hernia, mass, tenderness, rebound. - Extremities Exam Extremities exam: Present: normal inspection, normal capillary refill. Upper extremity pulses 2+. Lower extremity pulses 2+. Absent: calf tenderness, edema -Musculoskeletal Exam Musculoskeletal: Present: No Fluid Collection, No Pain, Normal Range of Motion - Back Exam Back exam: Present: normal inspection. Absent: muscle spasm, vertebral tenderness - Neurological Exam Neurological exam: Present: alert, oriented X3, grossly intact without resting or essential tremor - Psychiatric Psychiatric exam: Present: normal affect, normal mood - Skin Skin exam: Present: normal color, warm, dry, intact. Absent: cyanosis, diaphoretic, rash, urticaria Result/EKG - Labs CBC & BMP: 02/19/17 13:04 02/19/17 13:04 Lab Results: I have reviewed the past 24 hour labs Labs: Laboratory Results - last 24 hr 02/20/17 02/20/17 02/21/17 16:25 22:29 05:07 Total Creatine Kinase 130 113 100 CK-MB (CK-2) < 1.0 < 1.0 < 1.0 Troponin I < 0.015 < 0.015 < 0.015 - EKG EKG results: interpreted by me, sinus rhythm
[2017-02-21] MEDS: NAPROXEN 250 MG TABLET PO SCH (16:22)
[2017-02-21] MEDS ORDERED: ALUM/MAG/SIMETH/LIDO VISC 1:1 30 ML BOTTLE PO ONE (17:24)
--- NOTE | 2017-02-21 18:41 | Sleep Medicine Consult ---
Assessment and Plan (1) Obstructive sleep apnea Status: Acute Assessment and plan: This patient certainly does have symptoms concerning for obstructive sleep apnea though it has not been proven as of yet. He does snore loudly and has been witnessed to stop breathing during his sleep. When witnessed by the spouse , this history is usually very reliable in diagnosing sleep apnea. With a strong family history of heart disease and his current comorbidities of hypertension and chest pain, I do certainly think that sleep evaluation is indicated. He does have [facility] and this usually will necessitate home sleep testing. We cannot do this tonight and we will set this up next week with follow-up in the sleep clinic. Thank you for this consult and the opportunity to participate in his care. Current Visit: Yes (2) Essential hypertension Status: Chronic Assessment and plan: The prevalence rate for obstructive sleep apnea patients with hypertension is 35 %. That rate can be as high as 80% in patients who require 4 or more medications for blood pressure control. Current Visit: Yes History of Present Illness Chief complaint: Sleep apnea History of present illness: Mr. Bello is a 46 year old male admitted with chest pain and difficult to control hypertension. He has been seen by cardiology and GI medicine after admission by the hospitalist service. It is thought that cardiac cath may be needed but the patient has some question of GI bleeding and there is concern about whether it is safe to proceed with that. During the course of his evaluation, it was noted that he had risk factors for sleep apnea and sleep medicine was consulted. The patient does describe himself as a very loud snore. His will not sleep with him in the same bedroom because of the loudness of his snoring. He has been told that he will stop breathing during his sleep. He does retire about 10:30 PM and awakens about 530-6. He feels unrefreshed upon awakening and is bothered by fatigue and sleepiness during the day. He does awaken 3-4 times a night to urinate. He does occasionally have discomfort of his legs as well that will disturb his sleep. He has a strong family history of heart disease and his father is in the process of being evaluated for sleep apnea. Home Medications Medication Instructions Recorded Confirmed Type Atenolol 50 mg PO DAILY 02/19/17 02/19/17 History Benazepril/Hydrochlorothiazide 1 each PO DAILY 02/19/17 02/19/17 History [Benazepril-Hctz 20-25 mg Tab] Allergies Allergy/AdvReac Type Severity Reaction Status Date / Time Metaxalone [From Skelaxin] Allergy Unknown/Unable Verified 02/19/17 12:43 to obtain Review of systems: Otherwise unremarkable from a sleep standpoint. Exam (Pulmonay) H&P - Constitutional Vitals: Period Temp Pulse Resp BP Sys/Hill Pulse Ox Last 24 Hr 97.4 F-98.5 F 55-77 16-20 130-171/69-101 94-99 Exam: He is alert and responsive in no acute distress. Pupils equal round reactive to light and accommodation. Extraocular movements intact. Oropharynx with a class IV Mallampati exam. Neck is supple without adenopathy or thyromegaly. No supraclavicular adenopathy is noted. Chest with symmetrical breath sounds without focal wheeze, rhonchi, or rales. Cardiac exam reveals a regular rhythm without murmur or gallop. Abdomen soft nontender without palpable hepatosplenomegaly or mass. Extremities are without clubbing, cyanosis, or edema. Neurologically, he is grossly intact. He moves all extremities with good strength and ambulates with a normal gait. Medical,Surgical,& Family Hx - Medical History Cardio: History of: Hypertension Neurology: No history of: Seizures Rheumatology: History of;: Gout Musculoskeletal: History of: Musculoskeletal Problems (back surgery and plate in neck) - Surgical History Abdominal Surgeries: Surgical HX of: Cholecystectomy, Colonoscopy (polyps removed), EGD Orthopedic Surgeries: Surgical HX of;: Orthopedic Surgery - Family History Family History: Reports;: Family Diabetes, Family Heart Disease, Family Hypertension, Family Stroke Denies;: Family Cancer - Social History Smoking Status: Current every day smoker (uses smokeless tobacco) Frequency of Alcohol Use: None Type of Drug Use: None Results - Labs CBC & BMP: 02/19/17 13:04 02/19/17 13:04 Lab Results: I have reviewed the past 24 hour labs
[2017-02-21] MEDS: ROSUVASTATIN 20 MG TABLET PO SCH (20:38)
[2017-02-21] MEDS: SERTRALINE 25 MG TABLET PO SCH (21:51)
[2017-02-22 04:13] LABS: Basophils # 0.1 10*3/uL (0.0-0.2); Basophils % 1.5 % (0.0-0.8); Eosinophils # 0.4 10*3/uL (0.0-0.87); Eosinophils % 7.1 % (0.00-10.9); Hematocrit 41.6 VOL% (42.0-52.0); Hemoglobin 14.3 GM/DL (14.0-18.0); Immature Granulocytes % 0.3 %; Immature Granulocytes Absolute 0.02 #; Lymphocytes # 2.3 10*3/uL (1.4-4.0); Lymphocytes % 37.1 % (21.2-54.2); Mean Corpuscular HGB Conc 34.4 GM/DL (32-36); Mean Corpuscular Hemoglobin 30 PG (27-34); Mean Corpuscular Volume 86.3 FL (87-102); Mean Platelet Volume 11.2 FL (9.6-12.0); Monocytes # 0.5 10*3/uL (0.11-0.8); Monocytes % 7.4 % (1.7-12.7); Neutrophils # 2.8 10*3/uL (1.4-7.4); Neutrophils % 46.6 % (38.7-73.9); Platelet Count 293 T/CUMM (130-400); Red Blood Count 4.82 MC/CUMM (3.8-5.5); Red Cell Distribution Width 13.2 % (9.3-17.3); White Blood Count 6.1 T/CUMM (4-12)
[2017-02-22] MEDS: ENOXAPARIN 100 MG/ML SYRINGE SUBCUT SCH ×2 (04:30→14:59)
[2017-02-22 04:44] LABS: Magnesium 2.3 MG/DL (1.8-2.4); Osmolality,Calculated 283.3 MOS/KG (273-304)
[2017-02-22] MEDS: BENAZEPRIL 10 MG TABLET PO SCH ×2 (08:55→20:49)
[2017-02-22] MEDS: ACETAMINOPHEN 325 MG TABLET PO SCH ×2 (08:56→20:49)
[2017-02-22] MEDS: ATENOLOL 50 MG TABLET PO SCH (08:57)
[2017-02-22] MEDS: PANTOPRAZOLE 40 MG TABLET PO SCH ×2 (08:57→20:50)
[2017-02-22] MEDS: GABAPENTIN 100 MG CAPSULE PO SCH ×3 (08:57→20:49)
[2017-02-22] MEDS: traMADol 50 MG TABLET PO SCH ×2 (08:58→20:49)
[2017-02-22] MEDS: NICOTINE 21 MG/24 HR PATCH TRANSDERM SCH (08:59)
[2017-02-22] MEDS ORDERED: clonazePAM 0.5 MG TABLET PO PRN (09:00)
[2017-02-22] MEDS ORDERED: NAPROXEN 250 MG TABLET PO PRN ×2 (09:00)
--- NOTE | 2017-02-22 10:18 | Gastrointestinal Progress Note ---
<Suyapa Garcia - Last Filed: 02/22/17 10:15> Assessment and Plan (1) Nausea and vomiting Status: Acute Assessment and plan: 02/22-EGD findings as below. No complaints of nausea or pain at present time. Stools negative for occult blood. Plan an addendum to follow by Dr. Mistry. 02/20-several year history of nausea and vomiting every morning, not associated with meal ingestion or other known factors. Prior workup at [facility] for this with no findings. Occasional reports of melena. Obtain stool for occult blood. Obtain endoscopy records from [facility]. Cardiac workup is ongoing at this time. Plan an addendum to follow by Dr. Mistry. Current Visit: Yes Gastroenterology - PN: Subj Interval history: CC: Nausea, chest pain Patient is seen awake and alert with at bedside. Denies any chest pain at this time are nausea. Tolerating small amounts of his diet. EGD findings on yesterday noted for acute antral erosive gastritis as well as duodenitis. Patient's is concerned because of patient's strong cardiac family history with the demise of his mother and brother at an early age, 50 and below, that she is wanting to proceed with heart catheterization to further evaluate the source of his chest pain. Patient has had a heart cath in the past when he was in his 20s however he cannot recall the findings at that time other than fairly normal. Abdomen is soft, nontender. ROS: Denies shortness of breath or chest pain Exam (Progress Note) - Constitutional Vitals: Period Temp Pulse Resp BP Sys/Hill Pulse Ox Last 24 Hr 97.4 F-98.8 F 60-77 14-20 93-171/47-101 92-99 General appearance: normal weight, no acute distress - Head Head exam: Present: normal inspection, normocephalic - Eye Eye exam: Present: other (Lids and conjunctive are unremarkable). Absent: scleral icterus - ENT ENT exam: Present: normal exam, normal oropharynx - Neck Neck exam: Present: normal inspection - Respiratory Respiratory exam: Present: clear to auscultation bilaterally. Absent: rales, rhonchi, wheezes - Cardiovascular Cardiovascular exam: Present: regular rate and rhythm. Absent: diastolic murmur , JVD, systolic murmur - GI/Abdominal GI/Abdominal exam: Present: normal bowel sounds, soft. Absent: ascites, distended, mass, organomegaly, tenderness - Extremities Exam Extremities exam: Present: normal inspection, full ROM - Back Exam Back exam: Present: normal inspection - Neurological Exam Neurological exam: Present: alert, oriented X3 - Psychiatric Psychiatric exam: Present: normal affect, normal mood - Skin Skin exam: Present: normal color, warm, dry Results - Labs CBC & BMP: 02/22/17 02:50 02/22/17 02:50 Lab Results: I have reviewed the past 24 hour labs <Mando Mistry - Last Filed: 02/22/17 11:10> Exam (Progress Note) - Constitutional Vitals: Period Temp Pulse Resp BP Sys/Hill Pulse Ox Last 24 Hr 97.4 F-98.8 F 60-77 14-20 93-171/47-99 92-99 Results - Labs CBC & BMP: 02/22/17 02:50 02/22/17 02:50
[2017-02-22] MEDS ORDERED: DIAZEPAM 5 MG TABLET PO ONE (10:37)
[2017-02-22] MEDS ORDERED: diphenhydrAMINE CAP 25 MG CAPSULE PO ONE (10:38)
[2017-02-22] MEDS ORDERED: MAGNESIUM SULF RIDER 2 GM in PREMIX 1 EACH IV PRN (10:38)
[2017-02-22] MEDS ORDERED: POTASSIUM CHLORIDE RIDER 10 MEQ in PREMIX 1 EACH IV PRN (10:38)
--- NOTE | 2017-02-22 10:38 | Cardiology Progress Note ---
Assessment and Plan - Time spent with patient Time spent with patient: Less than 30 minutes (1) Angina pectoris Status: Acute Assessment and plan: See plan of care listed below. Current Visit: Yes (2) Essential hypertension Status: Chronic Assessment and plan: See plan of care listed below. Current Visit: Yes (3) Family history of premature CAD Status: Chronic Assessment and plan: See plan of care listed below. Current Visit: Yes (4) Obstructive sleep apnea Status: Acute Assessment and plan: See plan of care listed below. Current Visit: Yes (5) Hyperlipidemia Status: Acute Assessment and plan: See plan of care listed below. Current Visit: Yes (6) History of colon polyps Status: Chronic Assessment and plan: See plan of care listed below. Current Visit: Yes (7) Tobacco abuse Status: Chronic Assessment and plan: See plan of care listed below. Current Visit: Yes (8) Nausea and vomiting Status: Acute Assessment and plan: See plan of care listed below. Current Visit: Yes Cardiology - PN: Subj Interval history: EQUIPMENT OPERATOR: NONE, NEW TO DR. CAAL PCP: WINNIE RIDDLE Mr. Bello is a 46 year old male with a history of hypertension and gout who presented with elevated blood pressure and chest tightness. He also had symptoms suggestive of typical angina with a strong family history of premature CAD. This presentation is complicated by his history of cancerous polyps and recent black tarry stools. He was started on PPI, ASA, and treatment for musculoskeletal chest discomfort. GI was consulted to see him and further cardiac evaluation was postponed until GI bleed had resolved. This morning, he underwent EGD with biopsy with Dr. Mistry and was found to have acute antral erosive gastritis. This was felt to be the likely source for his nausea, vomiting, and dark stools. It was recommended he avoid nonsteroidals. There were no labs for today. We will recheck a CBC, BMP in the morning. On admission, his H&H was stable and has remained stable. His stools were negative for occult blood. ASSESSMENT/PLAN: 1. ANGINA - Patient reports symptoms fairly typical of angina. Currently has 3 sets of negative troponins and unremarkable EKG. He and his have some considerable anxiety regarding the possibility of the patient having coronary disease. It's quite possible his symptoms are coming from his GI issues, but given his family history, hypertension, and symptoms, the patient and his have requested C and I believe this is reasonable. The risk for bleeding and complications were thoroughly discussed by Dr. Mancia with the patient and his with myself at the bedside. They verbalized understanding and report "we just want answers." 2. HYPERTENSION - Currently well controlled on current therapy. Will continue to monitor and adjust accordingly. 3. FAMILY HISTORY OF PREMATURE CAD - He has a strong family history of coronary artery disease with a mom who from an [place] at age 50 and a brother who from an [place] at age 42. 4. SUSPECTED SLEEP DISORDER - Sleep medicine has been consulted. 5. HYPERLIPIDEMIA - Will start lipid-lowering agent. 6. HISTORY OF CANCEROUS COLON POLYPS - Patient underwent EGD and was found to have erosive gastritis. We are continuing PPI. 7. TOBACCO ABUSE - Spent greater than 5 minutes discussing the importance of cessation of tobacco use. 8. NAUSEA AND VOMITING - This morning, he underwent EGD with biopsy with Dr. Mistry and was found to have acute antral erosive gastritis. This was felt to be the likely source for his nausea, vomiting, and dark stools. It was recommended he avoid nonsteroidals. His aspirin has been held due to recent findings. Exam (Progress Note) - Constitutional Vitals: Period Temp Pulse Resp BP Sys/Hill Pulse Ox Last 24 Hr 97.4 F-98.8 F 60-77 14-20 93-171/47-99 92-99 Exam: General appearance: Pleasant and cooperative. Overweight, no acute distress. - Head Head exam: Present: normal inspection, normocephalic, atraumatic. Absent: hematoma, laceration - Eye Eye exam: Present: EOMI. Absent: conjunctival injection, nystagmus, periorbital swelling, scleral icterus, laceration to eyelids Pupils: Present: PERRL. Absent: constricted, dilated, fixed, irregular, unequal - ENT ENT exam: Present: normal exam, normal external ear exam - Neck Neck exam: Present: normal inspection. Absent: lymphadenopathy, meningismus, tenderness, thyromegaly - Respiratory Respiratory exam: Present: clear to auscultation bilaterally. Absent: accessory muscle use, chest wall tenderness - Cardiovascular Cardiovascular exam: Present: regular rate and rhythm. Absent: carotid bruit, gallop, JVD, rubs, murmur - GI/Abdominal GI/Abdominal exam: Present: normal bowel sounds, soft. Absent: distended, firm , guarding, hernia, mass, tenderness, rebound. - Extremities Exam Extremities exam: Present: normal inspection, normal capillary refill. Upper extremity pulses 2+. Lower extremity pulses 2+. Absent: calf tenderness, edema -Musculoskeletal Exam Musculoskeletal: Present: No Fluid Collection, No Pain, Normal Range of Motion - Back Exam Back exam: Present: normal inspection. Absent: muscle spasm, vertebral tenderness - Neurological Exam Neurological exam: Present: alert, oriented X3, grossly intact without resting or essential tremor - Psychiatric Psychiatric exam: Present: normal affect, normal mood - Skin Skin exam: Present: normal color, warm, dry, intact. Absent: cyanosis, diaphoretic, rash, urticaria Result/EKG - Labs CBC & BMP: 02/22/17 02:50 02/22/17 02:50 Lab Results: I have reviewed the past 24 hour labs Labs: Laboratory Results - last 24 hr 02/22/17 02/22/17 02:50 02:50 WBC 6.1 RBC 4.82 Hgb 14.3 Hct 41.6 L MCV 86.3 L MCH 30 MCHC 34.4 RDW 13.2 Plt Count 293 MPV 11.2 Neut % (Auto) 46.6 Lymph % (Auto) 37.1 Will % (Auto) 7.4 Eos % (Auto) 7.1 Baso % (Auto) 1.5 H Neut # (Auto) 2.8 Lymph # (Auto) 2.3 Will # (Auto) 0.5 Eos # (Auto) 0.4 Baso # (Auto) 0.1 Immature Gran % 0.3 Nucleated RBC % 0.0 Immature Gran # 0.02 Nucleated RBCs # 0.00 Sodium 141 Potassium 4.0 Chloride 103 Carbon Dioxide 28 Anion Gap 14.0 BUN 18 Creatinine 1.10 GFR Calculation 109 BUN/Creatinine Ratio 16.00 Glucose 118 H Calculated Osmolality 283.3 Calcium 9.0 Magnesium 2.3 - EKG EKG results: interpreted by me, sinus rhythm
--- NOTE | 2017-02-22 11:21 | Pathology Report from [facility] ---
[facility] ACCESSION # : [id number] PATIENT NAME : Gavino Catherine ORDERING DR : ARELY BLAKE MD CLINICAL HX: Atypical chest pain, N/V POST-OP DX: Same SPECIMEN INFO: Gastric GROSS DESCRIPTION: Received in formalin labeled GAVINO CATHERINE are two moss tissue fragments measuring 0.7 x 0.3 cm collectively submitted in one cassette. DIAGNOSIS FOR GAVINO CATHERINE: GASTRIC BIOPSY: Chronic superficial gastritis. H. pylori not seen on special stain. COLLECTED DATE: 02/21/2017 [facility] REPORT DATE: 02/22/2017 ELECTRONICALLY SIGNED BY: Carmel Lopez M.D. 02/22/2017 - 10:26:51 MTDDyllan
[2017-02-22] MEDS ORDERED: LIDOCAINE 1% 20 ML VIAL ONE (12:01)
[2017-02-22] MEDS ORDERED: HEPARIN/NACL 0.9% 2 UNITS/ML 1,000 ML IV ONE (12:01)
[2017-02-22] MEDS ORDERED: NITROGLYCERIN DRIP 50 MG/250 ML BOTTLE IV ONE (12:11)
[2017-02-22] MEDS ORDERED: fentaNYL 100 MCG/2 ML VIAL ONE (12:11)
[2017-02-22] MEDS ORDERED: VERAPAMIL 5 MG/2 ML VIAL ONE (12:11)
[2017-02-22] MEDS ORDERED: MIDAZOLAM 2 MG/2 ML VIAL ONE (12:11)
--- NOTE | 2017-02-22 12:54 | History and Physical Update ---
Sedation H&P Update - History and Physical H&P was reviewed, the patient examined and there: are no changes in the patients condition since last H&P was completed. - Sedation Plan for Sedation: moderate Patient Consent: Procedure disscussed with patient and patinet has consented., Risks and benefits were discussed with patient,including infection,, bleeding, injury to surrounding structures, seizure, temporary nerve, Patient understands and accepts potential risks/benefits and agrees to, proceed. ASA Class: III Airway Assessment: Class III: Soft palate, base of uvula visible
[2017-02-22] MEDS ORDERED: ENOXAPARIN 60 MG/0.6 ML SYRINGE ONE (13:04)
--- NOTE | 2017-02-22 13:30 | Cardiac Catheterization ---
Date of Procedure:: 02/22/17 Pre-op Diagnosis: Patient with atypical chest pain with risk factors for premature coronary disease. He is for diagnostic evaluation and intervention if indicated Post-op diagnosis: same Procedure: Procedures performed: 1: Left heart catheterization 2: Coronary arteriography 3: Left ventriculography After obtaining informed consent the patient was brought to the cardiac catheterization lab where the right wrist was prepped and draped in the usual sterile fashion. Using intravenous sedation and local anesthesia a needle was inserted into the right radial artery and a guidewire was positioned without difficulty. A 5 Haitian sheath was advanced over the guidewire and positioned in the right radial artery without difficulty. Patient was given verapamil and nitroglycerin intra-arterial as a vasodilator. At this point a Fareed catheter was advanced over a guidewire under fluoroscopic control to the ascending aorta where the left main coronary ostium was engaged and multiple angiograms were obtained in multiple angulations. Next this catheter was manipulated into the right coronary artery and multiple angiograms of the right coronary artery was undertaken in multiple views. After adequate angiograms the right coronary were obtained this catheter then with the assistance of a guidewire was advanced across the aortic valve into the left ventricle and a left ventriculogram was obtained in the MARTINO projection injecting 30 mL of contrast at 12 mL/s. After adequate ventriculography was obtained this catheter was pulled back from the ventricle to the aorta under hemodynamic monitoring and removed. Patient then underwent T R band application 2 mm above the radial skin entry site. 15 mL of air was in injected into the hemo band and the radial sheath was pulled. Air was removed from the TR band and 1 mL intervals until a arterial flash was noted. Additional 2 mL of air were added back to the TR band at this point. The patient tolerated procedure well. His right hand was warm with good capillary fill noted. Patient was transferred to the holding area having suffered no significant immediate complications. Hemodynamics: Please see accompanying data sheet Coronary angiography: Left coronary artery: Left main coronary artery is well-developed and free of significant obstructing lesions. The circumflex coronary artery is a large nondominant vessel with possesses no significant lesions throughout its course. The distal circumflex is a small vessel with tandem lesions measuring 50% in the first and roughly 80-90% of the more distal. This was probably a 1.5-2 mm vessel distally. The left anterior descending coronary artery is large vessel that extends to the apex of the ventricle. He has some minor diffuse irregularities throughout its middle portion measuring probably 20-30% maximal luminal diameter narrowing. There is a diagonal branch and has an ostial area probably 50% stenosis. This is a fairly small vessel. Right coronary artery: Right coronary arteries a large dominant vessel that possesses no significant lesions throughout its course. The branches of the right coronary artery are likewise free of significant obstructing lesions. Left ventriculography: After injection of contrast in the left ventricle is noted be of normal size with normal contractility. Mitral and aortic structures appear normal by ventriculography. 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 Discussion and recommendations: Patient presents with atypical chest pain and gastritis with esophagitis noted by scope. Because of ongoing concern related to his coronary anatomy with he has undergone cardiac catheterization which demonstrates distal circumflex disease which I think would be best managed medically. I do not think it is causing a lot of his symptoms. He will continue risk factor modification and we will begin him on antianginals and then follow him closely. Our findings have been reviewed with the patient and with his family. Surgeon / Physician: Jc Mancia Estimated blood loss: none Specimens: other (Erosive gastritis) Condition: stable - Medications / Follow-up
--- NOTE | 2017-02-22 14:52 | Hospitalist Progress Note ---
Assessment and Plan - Time spent with patient Time spent with patient: Greater than 30 minutes (1) Chest pain Status: Acute Assessment and plan: Tolerated Cardiac cath today. 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 Currently ASA and NSAIDs on hold. May start ASA back in a few weeks per Cards. Currently already on Statin, Atenolol, Benazepril, Nifedipine and hydralazine. Will f/u with [employer] [address] Mancia in one month. Plan to dc pt home in am. Discussed with pt, pt's , Cardiology and RN today. Current Visit: Yes (2) Acute erosive gastritis Status: Acute Assessment and plan: PPI BID per GI. Hold ASA and NSAIDs for now. GI f/u. Current Visit: Yes (3) Duodenitis Status: Acute Assessment and plan: See listed as above. Current Visit: Yes (4) Essential hypertension Status: Chronic Assessment and plan: Continue current medications. Current Visit: Yes (5) Hyperlipidemia Status: Acute Assessment and plan: Continue current meds. Current Visit: Yes (6) Obstructive sleep apnea Status: Acute Current Visit: Yes Hospitalist: Subjective Interval history: Still epigastric area discomfort/plan. Tolerated cardiac cath toay and showed distal circumflex disease of a small vessel for medical management. Currently ASA and NSAIDs on hold. May start ASA back in a few weeks per Cards. On Statin, Atenolol, Benazepril, Nifedipine and hydralazine. Deny fever, headache, N/V/D or hematuria. Exam - Constitutional Vitals: Period Temp Pulse Resp BP Sys/Hlil Pulse Ox Last 24 Hr 97.4 F-98.8 F 60-77 14-20 93-171/47-99 92-99 Exam: GENERAL: NAD, AAOx3. HEENT: Pupils equally round and reactive to light, conjunctivae clear. TMs peña and translucent. Oropharynx pink, with moist mucous membranes. Normal lips, teeth and gums. NECK: Supple without mass. HEART: RRR, no murmur. CHEST: Normal shape, good air movement, no retractions. CV: RRR, no murmurs, 2+ peripheral pulses LUNGS: Clear to auscultation; no rales, rhonchi, or wheezes. ABDOMEN: Soft, +BS, Slight tenderness at upper abd area. SKIN: No rash or edema. LYMPH: No anterior or posterior cervical, or supraclavicular lymphadenopathy. NEURO: Can ambulate well. Results - Labs CBC & BMP: 02/22/17 02:50 02/22/17 02:50 Quality Measures - VTE Contraindication to Pharmacological VTE Prophylaxis: High Risk of Bleeding
[2017-02-22] MEDS: HYDROmorphone 2 MG/1 ML VIAL IV PRN (15:03)
[2017-02-22] MEDS: ASPIRIN EC 81 MG TABLET PO SCH (15:04)
[2017-02-22] MEDS: ROSUVASTATIN 20 MG TABLET PO SCH (20:48)
[2017-02-22] MEDS: SERTRALINE 25 MG TABLET PO SCH (20:52)
[2017-02-23 03:52] LABS: Basophils # 0.1 10*3/uL (0.0-0.2); Basophils % 0.7 % (0.0-0.8); Eosinophils # 0.6 10*3/uL (0.0-0.87); Eosinophils % 7.5 % (0.00-10.9); Hematocrit 42.4 VOL% (42.0-52.0); Hemoglobin 14.4 GM/DL (14.0-18.0); Immature Granulocytes % 0.4 %; Immature Granulocytes Absolute 0.03 #; Lymphocytes # 1.5 10*3/uL (1.4-4.0); Lymphocytes % 18.6 % (21.2-54.2); Mean Corpuscular Hemoglobin 29 PG (27-34); Mean Corpuscular Volume 86.7 FL (87-102); Mean Platelet Volume 10.6 FL (9.6-12.0); Monocytes # 0.7 10*3/uL (0.11-0.8); Monocytes % 8.4 % (1.7-12.7); Neutrophils # 5.2 10*3/uL (1.4-7.4); Neutrophils % 64.4 % (38.7-73.9); Platelet Count 255 T/CUMM (130-400); Red Blood Count 4.89 MC/CUMM (3.8-5.5); Red Cell Distribution Width 13.2 % (9.3-17.3); White Blood Count 8.1 T/CUMM (4-12)
[2017-02-23 04:19] LABS: Calcium 8.8 MG/DL (8.5-10.1); Magnesium 1.9 MG/DL (1.8-2.4); Osmolality,Calculated 278.5 MOS/KG (273-304); Potassium 4.2 MMOL/L (3.5-5.1)
[2017-02-23] MEDS: ENOXAPARIN 100 MG/ML SYRINGE SUBCUT SCH (04:53)
[2017-02-23 08:20] VITALS: BP 133/71
--- NOTE | 2017-02-23 08:25 | Discharge Summary ---
<VinceRajesh - Last Filed: 02/23/17 09:19> Hospital Course - Hospital Course Hospital Course: Ms. Bello is a 46-year-old male with a past medical history significant for hypertension and possible enlarged heart who was admitted to [facility] on 2016. Patient came in and reported that his blood pressure at home was 207/127 and that he had run out of his hypertensive medication. He has a strong history of heart disease. His mother from a massive heart attack at age 50 and his brother at age 42. He was admitted to the telemetry unit to the hospital medicine service for further cardiac workup, and cardiology was consulted. Serial cardiac enzymes remained negative. GI was also consulted and an EGD revealed acute antral erosive gastritis as well as duodenitis. GI recommends continuing PPI treatment. Echocardiogram performed on 02/22/2017 revealed distal circumflex disease of a small vessel, normal LV systolic function with ejection fraction approximately 55%, and normal end- diastolic pressures at rest. Cardiology suggested medical management of small vessel disease. At this time, patient has reached maximum benefit from hospitalization and is stable for discharge. Upon discharge, the patient should hold aspirin and NSAID use and follow-up with cardiology outpatient. Discharge orders and appropriate instructions to follow per addendum by Dr. Painter. Specialty Discharge - Follow Up or Referrals Follow up with: Jc Mancia MD [Physician] - 1 Month Discharge Plan - Discharge Medications New Aspirin EC Tab 81 mg PO DAILY tablet Benazepril [Lotensin] 20 mg PO BID tablet NIFEdipine XL TAB [Procardia Xl] 30 mg PO BEDTIME tablet Pantoprazole Tab [Protonix Tab] 40 mg PO BID tablet Rosuvastatin [Crestor] 20 mg PO BEDTIME tablet hydrALAZINE TAB [Apresoline Tab] 25 mg PO TID PRN tablet PRN Reason: SBP greater or equal to 180 Nicotine 21 mg/24 Hr Patch [Nicoderm CQ 21 mg/24 hr Patch] 1 patch TRANSDERM DAILY #30 patch No Action Benazepril/Hydrochlorothiazide [Benazepril-Hctz 20-25 mg Tab] 1 each PO DAILY Atenolol 50 mg PO DAILY - Follow Up or Referral Follow Up: Jc Mancia MD [Physician] - 1 Month - Forms/Instructions Instructions: [facility] Cardiac Catheterization Instructions -Radial Artery Exam - Constitutional Vitals: Period Temp Pulse Resp BP Sys/Hill Pulse Ox Last 24 Hr 97.7 F-98.8 F 52-83 18-20 112-157/58-90 91-98 Discharge Results Procedures and tests throughout hospitalization: Pending Orders 02/21/17 22:09 Occult Blood, Stool Routine 02/22/17 10:56 CL heart Routine Labs on day of discharge: Labs from last 24 hours 02/23/17 02/23/17 03:33 03:33 WBC 8.1 D RBC 4.89 Hgb 14.4 Hct 42.4 MCV 86.7 L MCH 29 MCHC 34.0 RDW 13.2 Plt Count 255 MPV 10.6 Neut % (Auto) 64.4 Lymph % (Auto) 18.6 L [place] % (Auto) 8.4 Eos % (Auto) 7.5 Baso % (Auto) 0.7 Neut # (Auto) 5.2 Lymph # (Auto) 1.5 [place] # (Auto) 0.7 Eos # (Auto) 0.6 Baso # (Auto) 0.1 Immature Gran % 0.4 Nucleated RBC % 0.0 Immature Gran # 0.03 Nucleated RBCs # 0.00 Sodium 139 Potassium 4.2 Chloride 103 Carbon Dioxide 28 Anion Gap 12.2 BUN 17 Creatinine 0.90 GFR Calculation 136 BUN/Creatinine Ratio 18.00 Glucose 105 Calculated Osmolality 278.5 Calcium 8.8 Magnesium 1.9 DS: Provider Date of admission: 02/19/17 15:48 Primary care physician: . No PCP Attending physician on admission: Pancho Cook MD Consults: 02/19/17 15:48 Consult to Physician [CONS] Routine Comment: VIVI symptoms Consulting Provider: Lizabeth Tavarez 02/19/17 15:51 Consult to Physician [CONS] Routine Comment: Consulting Provider: Cardiology - [facility] Consult to Specialist Group: Cardiology Person Notified: OSMANY Date Notified: 02/20/17 Time Notified: 07:35 02/20/17 07:11 Consult to Sleep Center [CONS] Routine Reason for Sleep Center: Sleep Center Physician Consult Comment: VIVI 02/20/17 09:38 Consult to Physician [CONS] Routine Comment: freq. vomiting, coffee ground stools, hx CA polyps Consulting Provider: Mando Mistry Consult to Specialist Group: Gastroenterology When should Consulting Provider be notified: Now Person Notified: FRANKY Date Notified: 02/20/17 Time Notified: 14:45 02/22/17 13:33 Consult to Cardiac Rehabilitation [CONS] Routine Reason for Cardiac Rehabilitation: Risk Factor Modification Discharging clinician: Rajesh CORTEZ Expected date of discharge: 02/23/17 <Miguel Painter - Last Filed: 02/23/17 10:04> Hospital Course - Time spent with patient Time with patient DS: Greater than 30 minutes (I reviewed pt's lab results today. I reviewed image study reports and images. I saw and examined pt in his room today. I agree with history, physical, assessment and plan listed as above by our PA. Avoid NSAIDs due to acute erosive gastritis and duodenitis. Can resume ASA 81mg Per Cards. PPI BID. F/u with Cards as scheduled.) Diagnosis - Discharge Diagnosis (1) Chest pain Status: Acute (2) Acute erosive gastritis Status: Acute (3) Duodenitis Status: Acute (4) Essential hypertension Status: Chronic (5) Hyperlipidemia Status: Acute (6) Obstructive sleep apnea Status: Acute Discharge Plan - Discharge Data Condition at Discharge: Stable Discharge Diet: heart healthy (Avoid NSAIDs. F/u with cardiology clinic and your primary care clinic) Exam - Constitutional Exam: GENERAL: NAD, AAOx3. HEENT: Pupils equally round and reactive to light, conjunctivae clear. TMs peña and translucent. Oropharynx pink, with moist mucous membranes. Normal lips, teeth and gums. NECK: Supple without mass. HEART: RRR, no murmur. CHEST: Normal shape, good air movement, no retractions. CV: RRR, no murmurs, 2+ peripheral pulses LUNGS: Clear to auscultation; no rales, rhonchi, or wheezes. ABDOMEN: Soft, nontender, and no hepatosplenomegaly. SKIN: No rash or edema. LYMPH: No anterior or posterior cervical, or supraclavicular lymphadenopathy. NEURO: No gross motor deficits noted.
[2017-02-23] MEDS: ATENOLOL 50 MG TABLET PO SCH (09:01)
[2017-02-23] MEDS: GABAPENTIN 100 MG CAPSULE PO SCH (09:01)
[2017-02-23] MEDS: ACETAMINOPHEN 325 MG TABLET PO SCH (09:01)
[2017-02-23] MEDS: PANTOPRAZOLE 40 MG TABLET PO SCH (09:01)
[2017-02-23] MEDS: NICOTINE 21 MG/24 HR PATCH TRANSDERM SCH (09:02)
[2017-02-23] MEDS: traMADol 50 MG TABLET PO SCH (09:02)
[2017-02-23] MEDS: ASPIRIN EC 81 MG TABLET PO SCH (09:02)
[2017-02-23] MEDS: BENAZEPRIL 10 MG TABLET PO SCH (09:02)
== END 2017-02-23 10:47 | disposition home or self-care (01) ==
LOC: N.ED 12:35 → N.EDINP 12:35 → SUATTDRO 15:48 → N.TELES 17:21
PROVIDERS: ADMIT Internal Medicine; ATTEND Internal Medicine
PROC: CLCCHCL (ICD-10-PCS; 2017-02-22 13:15)